=== PATIENT | male | born 1950 | race Caucasian/White ===

== ENCOUNTER 2023-09-25 15:11 | Inpatient (IN) | payer OTHER ==
[~2023-09-25] VITALS: Ht 195.6 cm; Wt 96.6 kg
[2023-10-03 15:00] VITALS: PULSE 85; RESP 18; O2SAT 98
[2023-10-03] MEDS ORDERED: MSCON15 PO (15:21)
[2023-10-03] MEDS ORDERED: ATOR10TA PO (15:21)
[2023-10-03] MEDS ORDERED: DONE5TAB6 PO (15:21)
[2023-10-03] MEDS ORDERED: HYDR-5080 PO (15:21)
[2023-10-03] MEDS ORDERED: ASCO500T95 PO (15:21)
[2023-10-03] MEDS ORDERED: FERR-149 PO (15:21)
[2023-10-03] MEDS ORDERED: SEVE800T6 PO (15:21)
[2023-10-03] MEDS ORDERED: DEXT15DR6 OP (15:21)
[2023-10-03] MEDS ORDERED: CARV6.25 PO (15:21)
[2023-10-03 16:00] VITALS: BP 133/66; PULSE 69; RESP 18; TEMP 97.6; O2SAT 100
[2023-10-03] MEDS ORDERED: HYDROcodone/APAP 5/325 MG 1 TAB TAB PO PRN (16:10)
[2023-10-03] MEDS ORDERED: POTASSIUM CHLORIDE 10 MEQ TABER PO PRN (16:10)
[2023-10-03] MEDS ORDERED: KCL 20 MEQ IN 100 mL PREMIX 200 ML IV PRN (16:10)
[2023-10-03] MEDS ORDERED: MAGNESIUM OXIDE 400 MG TAB PO PRN (16:10)
[2023-10-03] MEDS ORDERED: ACETAMINOPHEN 325 MG TAB PO PRN (16:10)
[2023-10-03] MEDS ORDERED: MAG SULF 2000 MG/WATER PREMIX 50 ML IV PRN (16:10)
[2023-10-03] MEDS ORDERED: ONDANSETRON 4 MG/2 ML VIAL IVP PRN (16:10)
[2023-10-03 20:00] VITALS: BP 135/58; PULSE 66; RESP 18; TEMP 97.7; O2SAT 100; O2SAT 98
[2023-10-03 22:01] LABS: BASOPHILS % (AUTO) 0.5 % (0.0-2.0); EOSINOPHILS # (AUTO) 0.1 K/uL (0-0.4); EOSINOPHILS % (AUTO) 2.6 % (0.0-4.0); HEMATOCRIT 26.8 % (36-52); HEMOGLOBIN 8.6 g/dL (12.0-18.0); LYMPHOCYTES # (AUTO) 0.5 K/uL (2.0-11.5); LYMPHOCYTES % (AUTO) 10.5 % (20.5-51.1); MEAN CORPUSCULAR HEMOGLOBIN 29 pg (27-31); MEAN CORPUSCULAR HGB CONC 32 g/dL (33-37); MEAN CORPUSCULAR VOLUME 90.8 fL (80-94); MONOCYTES # (AUTO) 0.6 K/uL (0.8-1.0); MONOCYTES % (AUTO) 11.1 % (1.7-9.3); NEUTROPHILS # (AUTO) 3.8 K/uL (1.8-7.7); NEUTROPHILS % (AUTO) 75.3 % (42.2-75.2); PLATELET COUNT (AUTO) 119 K/uL (140-450); RED BLOOD CELL COUNT(AUTO) 2.95 MIL/uL (4.20-6.10); RED CELL DISTRIBUTION WIDTH 19.1 % (11.6-13.7)
[2023-10-03 22:17] LABS: ANION GAP 13.2 (8-16); CHLORIDE 98 mmol/L (98-107); GLUCOSE 110 mg/dL (74-106); SODIUM SERUM 138 mmol/L (136-145); UREA NITROGEN, BLOOD 43 mg/dL (7-18)
[2023-10-03 22:35] LABS: CREATININE 5.6 mg/dL (0.6-1.3); POTASSIUM 6.2 mmol/L (3.5-5.1)
[2023-10-03] MEDS ORDERED: SODIUM POLYSTYRENE 15 GM/60 ML UDBTL PO ONE (22:45)
[2023-10-04 07:15] LABS: BASOPHILS % (AUTO) 0.7 % (0.0-2.0); EOSINOPHILS # (AUTO) 0.2 K/uL (0-0.4); EOSINOPHILS % (AUTO) 4.3 % (0.0-4.0); HEMOGLOBIN 8.5 g/dL (12.0-18.0); LYMPHOCYTES # (AUTO) 0.6 K/uL (2.0-11.5); LYMPHOCYTES % (AUTO) 14.1 % (20.5-51.1); MEAN CORPUSCULAR HEMOGLOBIN 30 pg (27-31); MEAN CORPUSCULAR HGB CONC 33 g/dL (33-37); MEAN CORPUSCULAR VOLUME 90.6 fL (80-94); MONOCYTES # (AUTO) 0.5 K/uL (0.8-1.0); MONOCYTES % (AUTO) 12.1 % (1.7-9.3); NEUTROPHILS % (AUTO) 68.8 % (42.2-75.2); PLATELET COUNT (AUTO) 112 K/uL (140-450); RED BLOOD CELL COUNT(AUTO) 2.87 MIL/uL (4.20-6.10); RED CELL DISTRIBUTION WIDTH 18.9 % (11.6-13.7); WHITE BLOOD COUNT (AUTO) 4.4 K/uL (4.8-10.8)
[2023-10-04 07:30] VITALS: O2SAT 98
[2023-10-04 07:33] LABS: MAGNESIUM 1.8 mg/dL (1.8-2.4); PHOSPHORUS 3.6 mg/dL (2.5-4.9)
[2023-10-04 07:50] LABS: ANION GAP 13.2 (8-16); CALCIUM 9.3 mg/dL (8.5-10.1); CARBON DIOXIDE 32.7 mmol/L (21-32); CHLORIDE 97 mmol/L (98-107); GLUCOSE 85 mg/dL (74-106); POTASSIUM 4.9 mmol/L (3.5-5.1); SODIUM SERUM 138 mmol/L (136-145); UREA NITROGEN, BLOOD 31 mg/dL (7-18)
[2023-10-04 08:00] VITALS: BP 137/69; PULSE 68; PULSE 79; RESP 18; RESP 20; TEMP 97.8; O2SAT 100; O2SAT 97
[2023-10-04 08:08] LABS: CREATININE 4.5 mg/dL (0.6-1.3)
[2023-10-04 14:28] LABS: ALBUMIN 3.1 g/dL (3.4-5.0); BILIRUBIN,DIRECT 0.4 mg/dL (0.0-0.3); TOTAL BILIRUBIN 0.9 mg/dL (0.0-1.0)
[2023-10-04 17:17] VITALS: BP 149/69; PULSE 72; RESP 20; TEMP 97.9; O2SAT 100
[2023-10-04 20:00] VITALS: BP 143/69; PULSE 80; RESP 20; TEMP 97.8; O2SAT 100; O2SAT 97
[2023-10-05 07:12] LABS: BASOPHILS # (AUTO) 0.1 K/uL (0.00-0.22); EOSINOPHILS # (AUTO) 0.1 K/uL (0-0.4); EOSINOPHILS % (AUTO) 2.7 % (0.0-4.0); HEMATOCRIT 25.9 % (36-52); HEMOGLOBIN 8.5 g/dL (12.0-18.0); LYMPHOCYTES # (AUTO) 0.7 K/uL (2.0-11.5); LYMPHOCYTES % (AUTO) 14.1 % (20.5-51.1); MEAN CORPUSCULAR HEMOGLOBIN 30 pg (27-31); MEAN CORPUSCULAR HGB CONC 33 g/dL (33-37); MEAN CORPUSCULAR VOLUME 90.5 fL (80-94); MONOCYTES # (AUTO) 0.6 K/uL (0.8-1.0); MONOCYTES % (AUTO) 12.3 % (1.7-9.3); NEUTROPHILS # (AUTO) 3.4 K/uL (1.8-7.7); NEUTROPHILS % (AUTO) 69.9 % (42.2-75.2); PLATELET COUNT (AUTO) 109 K/uL (140-450); RED BLOOD CELL COUNT(AUTO) 2.86 MIL/uL (4.20-6.10); WHITE BLOOD COUNT (AUTO) 4.8 K/uL (4.8-10.8)
[2023-10-05 07:34] LABS: ANION GAP 13.6 (8-16); CALCIUM 9.2 mg/dL (8.5-10.1); CARBON DIOXIDE 30.2 mmol/L (21-32); CHLORIDE 99 mmol/L (98-107); GLUCOSE 78 mg/dL (74-106); MAGNESIUM 1.7 mg/dL (1.8-2.4); PHOSPHORUS 3.8 mg/dL (2.5-4.9); POTASSIUM 4.8 mmol/L (3.5-5.1); SODIUM SERUM 138 mmol/L (136-145); UREA NITROGEN, BLOOD 27 mg/dL (7-18)
[2023-10-05 07:36] LABS: CREATININE 4.1 mg/dL (0.6-1.3)
[2023-10-05 08:00] VITALS: BP 131/89; PULSE 100; PULSE 92; PULSE 99; RESP 20; TEMP 98.8; O2SAT 97; O2SAT 99
[2023-10-05 18:49] VITALS: BP 157/79; PULSE 77; PULSE 99; RESP 20; TEMP 98.8; O2SAT 99
[2023-10-05 20:00] VITALS: BP 154/81; PULSE 100; PULSE 78; PULSE 92; RESP 20; TEMP 97.5; O2SAT 97; O2SAT 99
[2023-10-06 06:34] LABS: BASOPHILS # (AUTO) 0.1 K/uL (0.00-0.22); BASOPHILS % (AUTO) 1.2 % (0.0-2.0); EOSINOPHILS # (AUTO) 0.1 K/uL (0-0.4); EOSINOPHILS % (AUTO) 1.7 % (0.0-4.0); HEMATOCRIT 27.8 % (36-52); HEMOGLOBIN 9.1 g/dL (12.0-18.0); LYMPHOCYTES # (AUTO) 0.9 K/uL (2.0-11.5); LYMPHOCYTES % (AUTO) 14.5 % (20.5-51.1); MEAN CORPUSCULAR HEMOGLOBIN 29 pg (27-31); MEAN CORPUSCULAR HGB CONC 33 g/dL (33-37); MEAN CORPUSCULAR VOLUME 90.4 fL (80-94); MONOCYTES # (AUTO) 0.8 K/uL (0.8-1.0); MONOCYTES % (AUTO) 12.2 % (1.7-9.3); NEUTROPHILS # (AUTO) 4.3 K/uL (1.8-7.7); NEUTROPHILS % (AUTO) 70.4 % (42.2-75.2); PLATELET COUNT (AUTO) 131 K/uL (140-450); RED BLOOD CELL COUNT(AUTO) 3.08 MIL/uL (4.20-6.10); RED CELL DISTRIBUTION WIDTH 19.1 % (11.6-13.7); WHITE BLOOD COUNT (AUTO) 6.2 K/uL (4.8-10.8)
[2023-10-06 07:04] LABS: ANION GAP 14.8 (8-16); CALCIUM 9.9 mg/dL (8.5-10.1); CARBON DIOXIDE 29.5 mmol/L (21-32); CHLORIDE 98 mmol/L (98-107); GLUCOSE 92 mg/dL (74-106); POTASSIUM 5.3 mmol/L (3.5-5.1); SODIUM SERUM 137 mmol/L (136-145); UREA NITROGEN, BLOOD 47 mg/dL (7-18)
[2023-10-06 07:07] LABS: MAGNESIUM 1.9 mg/dL (1.8-2.4); PHOSPHORUS 4.5 mg/dL (2.5-4.9)
[2023-10-06 07:26] LABS: CREATININE 5.8 mg/dL (0.6-1.3)
[2023-10-06 09:11] VITALS: BP 172/98; PULSE 92; RESP 19; TEMP 97; O2SAT 97
[2023-10-06 09:27] VITALS: PULSE 92; RESP 19; O2SAT 97
[2023-10-06 12:00] VITALS: BP 155/78; PULSE 78; RESP 18; TEMP 97.3; O2SAT 96
[2023-10-06 12:38] VITALS: BP 155/79; PULSE 7; RESP 18; TEMP 97.3
[2023-10-06 16:24] VITALS: BP 165/83; PULSE 79; RESP 18; TEMP 97.3; O2SAT 100
== END 2023-10-06 19:20 | DRG 291 ==
LOC: MTU 10-03 14:34
PROVIDERS: ADMIT Internal Medicine; ATTEND Internal Medicine
PROC: 5A1D70Z Performance of Urinary Filtration, Intermittent, Less than 6 Hours Per Day (ICD-10-PCS; principal; 2023-10-03)
PROC: 5A1D70Z Performance of Urinary Filtration, Intermittent, Less than 6 Hours Per Day (ICD-10-PCS; 2023-10-04)
PROC: 5A1D70Z Performance of Urinary Filtration, Intermittent, Less than 6 Hours Per Day (ICD-10-PCS; 2023-10-06)
DX: I13.2 Hypertensive heart and chronic kidney disease with heart failure and with stage 5 chronic kidney disease, or end stage renal disease (principal); I50.43 Acute on chronic combined systolic (congestive) and diastolic (congestive) heart failure; N18.6 End stage renal disease; E87.5 Hyperkalemia; E11.22 Type 2 diabetes mellitus with diabetic chronic kidney disease; L29.9 Pruritus, unspecified; Z99.2 Dependence on renal dialysis; Z79.891 Long term (current) use of opiate analgesic; Z79.899 Other long term (current) drug therapy
CPT/HCPCS: 36415; 71045; 80048; 80076; 83735; 84100; 85025; 87081; 97116; 97163-GP; 97530; J1644; Q0092; Q0163